=== PATIENT | male | born 1960 | race Caucasian/White ===

== ENCOUNTER 2022-07-12 03:13 | Inpatient (IN) | payer MEDICARE, OTHER ==
[~2022-07-12] VITALS: Ht 170.2 cm; Wt 67.5 kg
[~2022-07-12 03:13] MED LIST: ATOR10TA69 PO; INSLAN SQ; LEVO175T9 PO; LISI5TAB21 PO
[2022-07-12 03:42] LABS: BASOPHILS % (AUTO) 1.2 % (0.0-2.0); EOSINOPHILS % (AUTO) 2.1 % (1.0-6.0); LYMPHOCYTES # (AUTO) 1.6 K/uL (1.0-4.8); LYMPHOCYTES % (AUTO) 25.3 % (22.0-44.0); MEAN CORPUSCULAR HEMOGLOBIN 29.6 pg (26.0-34.0); MEAN CORPUSCULAR HGB CONC 33.3 G/dL (31.0-37.0); MEAN CORPUSCULAR VOLUME 89 fL (80-100); MONOCYTES # (AUTO) 0.5 K/uL (0.1-1.0); MONOCYTES % (AUTO) 7.6 % (2.0-9.0); NEUTROPHILS # (AUTO) 4.1 K/uL (1.8-7.7); NEUTROPHILS % (AUTO) 63.8 % (40.0-70.0); PLATELET COUNT (AUTO) 339 K/uL (150-450); RED BLOOD CELL COUNT(AUTO) 4.06 MIL/uL (4.50-5.90); RED CELL DISTRIBUTION WIDTH 14.1 % (11.5-14.5)
[2022-07-12 03:54] LABS: ANION GAP 10 mmol/L (8-16); CARBON DIOXIDE 26 mmol/L (22-29); CHLORIDE 102 mmol/L (98-107); CREATININE 0.86 mg/dL (0.60-1.30); GLOMERULAR FILTR. RATE CALC > 60 mL/min (>60); GLUCOSE,RANDOM 127 mg/dL (70-110); POTASSIUM 3.4 mmol/L (3.5-5.1); SODIUM SERUM 138 mmol/L (136-145); UREA NITROGEN, BLOOD 17 mg/dL (7-18)
[2022-07-12 03:58] LABS: ALANINE AMINOTRANSFERASE 20 U/L (12-78); ALBUMIN 3.6 g/dL (3.4-5.0); ALKALINE PHOSPHATASE 55 U/L (46-116); ASPARTATE AMINOTRANSFERASE 15 U/L (15-37); BILIRUBIN,TOTAL 0.2 mg/dL (0.1-1.0); CREATINE KINASE, TOTAL ONLY 68 U/L (39-308); TOTAL PROTEIN, SERUM 6.7 g/dL (6.4-8.2)
[2022-07-12 04:13] LABS: B-TYPE NATRIURETIC PEPTIDE 60 pg/mL (0-100)
[2022-07-12] MEDS ORDERED: DEXTROSE 50%-WATER 25 GM/50 ML SYRINGE IVP ONE (04:15)
[2022-07-12 04:26] LABS: GLUCOSE,POINT OF CARE 57 MG/DL (70-110)
[2022-07-12 04:45] LABS: PHOSPHORUS 4.5 mg/dL (2.5-4.9)
[2022-07-12 05:01] LABS: GLUCOSE,POINT OF CARE 136 MG/DL (70-110)
[2022-07-12] MEDS ORDERED: ACETAMINOPHEN 325 MG TABLET PO PRN (05:15)
[2022-07-12] MEDS ORDERED: ONDANSETRON HCL 4 MG/2 ML VIAL IVP PRN (05:15)
[2022-07-12] MEDS ORDERED: 0.9% SODIUM CHLORIDE 10 ML SYRINGE IVP PRN (05:15)
[2022-07-12] MEDS ORDERED: DEXTROSE 5%-LACTATED RINGERS 1,000 ML IV SCH (05:45)
[2022-07-12 05:46] LABS: GLUCOSE,POINT OF CARE 96 MG/DL (70-110)
[2022-07-12] MEDS: LEVOTHYROXINE SODIUM 150 MCG TABLET PO SCH (06:15)
[2022-07-12] MEDS: LEVOTHYROXINE SODIUM 25 MCG TABLET PO SCH (06:15)
[2022-07-12 06:22] LABS: GLUCOSE,POINT OF CARE 90 MG/DL (70-110)
[2022-07-12 06:28] LABS: COVID AG,FIA SOURCE NASAL SWAB
[2022-07-12] MEDS ORDERED: MISC MED-CONVERTED FROM AMBULATORY (Levothyroxine Sodium 175 MCG) PO SCH (06:30)
[2022-07-12 06:45] LABS: APPEARANCE,URINE CLEAR (CLEAR); BILIRUBIN,URINE NEGATIVE (NEGATIVE); GLUCOSE, URINE (UA) 300-500 mg/dL (NEGATIVE); KETONES,URINE NEGATIVE (NEGATIVE); LEUKOCYTE ESTERASE ,URINE SMALL (NEGATIVE); NITRATE,URINE NEGATIVE (NEGATIVE); OCCULT BLOOD,URINE NEGATIVE (NEGATIVE); PROTEIN,URINE NEGATIVE (NEGATIVE); SPECIFIC GRAVITIY, URINE 1.006 (1.003-1.030); UROBILINOGEN,URINE <=1.0 mg/dL (<=1.0)
[2022-07-12 07:01] LABS: BACTERIA,URINE Rare /HPF (None Seen); RBC,URINE None Seen /HPF (0-2); WBC,URINE 0-2 /HPF (0-5)
[2022-07-12 10:01] VITALS: BP 141/76
[2022-07-12] MEDS: ATORVASTATIN CALCIUM 10 MG TABLET PO SCH (11:00)
[2022-07-12] MEDS: LISINOPRIL 5 MG TABLET PO SCH (11:00)
[2022-07-12] MEDS ORDERED: DEXTROSE 50%-WATER 25 GM/50 ML SYRINGE IVP PRN (12:00)
[2022-07-12 12:11] LABS: GLUCOMETER DEV NAME(LOC) 5S.1B; GLUCOSE,POINT OF CARE 94 MG/DL (70-110)
[2022-07-12 12:16] VITALS: BP 126/75
[2022-07-12 15:27] VITALS: BP 109/59
[2022-07-12 20:24] VITALS: BP 108/63
[2022-07-12 20:46] LABS: GLUCOMETER DEV NAME(LOC) 5N.1C; GLUCOSE,POINT OF CARE 177 MG/DL (70-110)
[2022-07-12 20:47] LABS: GLUCOMETER DEV NAME(LOC) 5N.1C; GLUCOSE,POINT OF CARE 223 MG/DL (70-110)
[2022-07-13 00:45] VITALS: BP 100/67
[2022-07-13 04:54] VITALS: BP 95/53
[2022-07-13] MEDS: LEVOTHYROXINE SODIUM 25 MCG TABLET PO SCH (06:40)
[2022-07-13] MEDS: LEVOTHYROXINE SODIUM 150 MCG TABLET PO SCH (06:40)
[2022-07-13 06:51] LABS: GLUCOMETER DEV NAME(LOC) 5N.1C; GLUCOSE,POINT OF CARE 216 MG/DL (70-110)
[2022-07-13 07:27] LABS: BASOPHILS % (AUTO) 1.5 % (0.0-2.0); EOSINOPHILS % (AUTO) 2.2 % (1.0-6.0); HEMATOCRIT 39.8 % (41-53); HEMOGLOBIN 13.4 g/dL (13.5-17.5); LYMPHOCYTES # (AUTO) 1.7 K/uL (1.0-4.8); LYMPHOCYTES % (AUTO) 36.3 % (22.0-44.0); MEAN CORPUSCULAR HGB CONC 33.6 G/dL (31.0-37.0); MEAN CORPUSCULAR VOLUME 90 fL (80-100); MONOCYTES # (AUTO) 0.3 K/uL (0.1-1.0); MONOCYTES % (AUTO) 7.3 % (2.0-9.0); NEUTROPHILS # (AUTO) 2.5 K/uL (1.8-7.7); NEUTROPHILS % (AUTO) 52.7 % (40.0-70.0); PLATELET COUNT (AUTO) 295 K/uL (150-450); RED BLOOD CELL COUNT(AUTO) 4.44 MIL/uL (4.50-5.90); RED CELL DISTRIBUTION WIDTH 14.8 % (11.5-14.5)
[2022-07-13 07:33] VITALS: BP 107/63
[2022-07-13 07:49] LABS: ALANINE AMINOTRANSFERASE 18 U/L (12-78); ALBUMIN 3.2 g/dL (3.4-5.0); ALKALINE PHOSPHATASE 51 U/L (46-116); ANION GAP 6 mmol/L (8-16); ASPARTATE AMINOTRANSFERASE 17 U/L (15-37); BILIRUBIN,TOTAL 0.3 mg/dL (0.1-1.0); CALCIUM, TOTAL 8.7 mg/dL (8.8-10.5); CARBON DIOXIDE 31 mmol/L (22-29); CHLORIDE 104 mmol/L (98-107); CREATININE 0.78 mg/dL (0.60-1.30); GLOMERULAR FILTR. RATE CALC > 60 mL/min (>60); GLUCOSE,RANDOM 151 mg/dL (70-110); POTASSIUM 3.7 mmol/L (3.5-5.1); SODIUM SERUM 141 mmol/L (136-145); TOTAL PROTEIN, SERUM 6.2 g/dL (6.4-8.2); UREA NITROGEN, BLOOD 20 mg/dL (7-18)
[2022-07-13] MEDS: LISINOPRIL 5 MG TABLET PO SCH (09:32)
[2022-07-13] MEDS: ATORVASTATIN CALCIUM 10 MG TABLET PO SCH (09:32)
[2022-07-13 12:01] VITALS: BP 105/61
[2022-07-13 13:46] LABS: GLUCOMETER DEV NAME(LOC) 5N.1C; GLUCOSE,POINT OF CARE 247 MG/DL (70-110)
[2022-07-13 15:39] VITALS: BP 115/69
[2022-07-13 20:18] VITALS: BP 100/59
[2022-07-13] MEDS ORDERED: INSULIN LISPRO 100 UNITS/ML SQ ONE (21:00)
[2022-07-13] MEDS ORDERED: INSULIN LISPRO 100 UNITS/ML SQ PRN (21:00)
[2022-07-13 22:01] LABS: GLUCOMETER DEV NAME(LOC) 5N.1C; GLUCOSE,POINT OF CARE 389 MG/DL (70-110)
[2022-07-13 22:01] LABS: GLUCOMETER DEV NAME(LOC) 5N.1C; GLUCOSE,POINT OF CARE 586 MG/DL (70-110)
[2022-07-13 22:01] LABS: GLUCOMETER DEV NAME(LOC) 5N.1C; GLUCOSE,POINT OF CARE 542 MG/DL (70-110)
[2022-07-14 00:52] VITALS: BP 98/58
[2022-07-14 05:00] LABS: GLUCOMETER DEV NAME(LOC) 5N.1C; GLUCOSE,POINT OF CARE 242 MG/DL (70-110)
[2022-07-14] MEDS: LEVOTHYROXINE SODIUM 25 MCG TABLET PO SCH (05:31)
[2022-07-14] MEDS: LEVOTHYROXINE SODIUM 150 MCG TABLET PO SCH (05:31)
[2022-07-14 06:14] VITALS: BP 101/55
[2022-07-14 07:21] VITALS: BP 114/61
[2022-07-14] MEDS: ATORVASTATIN CALCIUM 10 MG TABLET PO SCH (08:12)
[2022-07-14] MEDS: LISINOPRIL 5 MG TABLET PO SCH (08:12)
[2022-07-14] MEDS ORDERED: INSLAN SQ ×2 (08:19→11:15)
[2022-07-14] MEDS ORDERED: INSULIN GLARGINE,HUM.REC.ANLOG 100 UNITS/ML SQ ONE (09:00)
[2022-07-14 09:06] LABS: GLUCOMETER DEV NAME(LOC) 5N.1C; GLUCOSE,POINT OF CARE 263 MG/DL (70-110)
[2022-07-14 11:00] VITALS: BP 106/58
[2022-07-14] MEDS ORDERED: INSULIN LISPRO 100 UNITS/ML SQ ONE ×2 (11:30→13:30)
[2022-07-14 12:51] LABS: GLUCOMETER DEV NAME(LOC) 5S.2C; GLUCOSE,POINT OF CARE 482 MG/DL (70-110)
[2022-07-14 18:21] LABS: GLUCOMETER DEV NAME(LOC) 5S.2C; GLUCOSE,POINT OF CARE 375 MG/DL (70-110)
== END 2022-07-14 14:15 | disposition home or self-care (01) | DRG 637 ==
LOC: EMS 03:14 → 5S 05:56
PROVIDERS: ADMIT Internal Medicine; ATTEND Internal Medicine
DX: E11.649 Type 2 diabetes mellitus with hypoglycemia without coma (principal); G93.41 Metabolic encephalopathy; E03.9 Hypothyroidism, unspecified; E78.5 Hyperlipidemia, unspecified; Z20.822 Contact with and (suspected) exposure to COVID-19; I10 Essential (primary) hypertension; Z79.4 Long term (current) use of insulin; Z79.899 Other long term (current) drug therapy
CPT/HCPCS: 70450; 71045; 72125; 80053; 81001; 82550; 82948; 82962; 83036; 83735; 83880; 84100; 84484; 85025; 93005; 99291; J1815; 36415-L1; 36415-TC

== ENCOUNTER 2022-07-17 02:06 | Emergency (ER) | payer MEDICARE, OTHER ==
[~2022-07-17] VITALS: Ht 175.3 cm; Wt 72.7 kg
[2022-07-17] MEDS ORDERED: DEXTROSE 50%-WATER 25 GM/50 ML SYRINGE IVP ONE (02:30)
[2022-07-17 02:49] LABS: BASOPHILS % (AUTO) 0.9 % (0.0-2.0); EOSINOPHILS % (AUTO) 2.1 % (1.0-6.0); HEMATOCRIT 36.7 % (41-53); LYMPHOCYTES # (AUTO) 1.7 K/uL (1.0-4.8); LYMPHOCYTES % (AUTO) 24.6 % (22.0-44.0); MEAN CORPUSCULAR HEMOGLOBIN 29.4 pg (26.0-34.0); MEAN CORPUSCULAR HGB CONC 32.8 G/dL (31.0-37.0); MEAN CORPUSCULAR VOLUME 90 fL (80-100); MONOCYTES # (AUTO) 0.5 K/uL (0.1-1.0); MONOCYTES % (AUTO) 7.5 % (2.0-9.0); NEUTROPHILS # (AUTO) 4.6 K/uL (1.8-7.7); NEUTROPHILS % (AUTO) 64.9 % (40.0-70.0); PLATELET COUNT (AUTO) 270 K/uL (150-450); RED BLOOD CELL COUNT(AUTO) 4.08 MIL/uL (4.50-5.90); RED CELL DISTRIBUTION WIDTH 14.3 % (11.5-14.5)
[2022-07-17 03:01] LABS: ANION GAP 8 mmol/L (8-16); CALCIUM, TOTAL 9.1 mg/dL (8.8-10.5); CARBON DIOXIDE 32 mmol/L (22-29); CHLORIDE 101 mmol/L (98-107); CREATININE 1.01 mg/dL (0.60-1.30); GLOMERULAR FILTR. RATE CALC > 60 mL/min (>60); GLUCOSE,RANDOM 201 mg/dL (70-110); POTASSIUM 3.7 mmol/L (3.5-5.1); SODIUM SERUM 141 mmol/L (136-145); UREA NITROGEN, BLOOD 22 mg/dL (7-18)
[2022-07-17 03:14] LABS: B-TYPE NATRIURETIC PEPTIDE 35 pg/mL (0-100)
[2022-07-17 03:26] LABS: ALANINE AMINOTRANSFERASE 28 U/L (12-78); ALKALINE PHOSPHATASE 65 U/L (46-116); ASPARTATE AMINOTRANSFERASE 21 U/L (15-37); BILIRUBIN,TOTAL 0.2 mg/dL (0.1-1.0); CREATINE KINASE, TOTAL ONLY 82 U/L (39-308); TOTAL PROTEIN, SERUM 7.1 g/dL (6.4-8.2)
[2022-07-17 05:21] LABS: GLUCOSE,POINT OF CARE 267 MG/DL (70-110)
[2022-07-17 06:39] VITALS: BP 122/75
== END 2022-07-17 06:40 | disposition left against medical advice (07) ==
LOC: EMS 02:07
DX: E11.649 Type 2 diabetes mellitus with hypoglycemia without coma (principal); I48.91 Unspecified atrial fibrillation; M19.90 Unspecified osteoarthritis, unspecified site; E78.00 Pure hypercholesterolemia, unspecified; I10 Essential (primary) hypertension; E03.9 Hypothyroidism, unspecified; Z89.9 Acquired absence of limb, unspecified; Z79.4 Long term (current) use of insulin; Z98.890 Other specified postprocedural states
CPT/HCPCS: 80053; 82550; 82962; 83880; 84484; 85025; 93005; 96374; 99284

== ENCOUNTER 2022-07-21 18:14 | Emergency (ER) | payer MEDICARE, OTHER ==
[~2022-07-21] VITALS: Ht 177.8 cm; Wt 72.7 kg
[2022-07-21 20:35] VITALS: BP 115/71
[2022-07-21] MEDS ORDERED: HYDROCODONE/ACETAMINOPHEN 5-325 MG TABLET PO ONE (20:45)
[2022-07-21] MEDS ORDERED: KETOROLAC TROMETHAMINE 60 MG/2 ML VIAL IM ONE (20:45)
[2022-07-21 21:11] LABS: GLUCOSE,POINT OF CARE 175 MG/DL (70-110)
[2022-07-21] MEDS ORDERED: HYDR-4723 PO (21:40)
[2022-07-21] MEDS ORDERED: IBUP-1554 PO (21:40)
== END 2022-07-21 22:43 | disposition still patient (30) ==
LOC: EMS 18:14
DX: S46.911A Strain of unspecified muscle, fascia and tendon at shoulder and upper arm level, right arm, initial encounter (principal); E11.9 Type 2 diabetes mellitus without complications; I48.91 Unspecified atrial fibrillation; M19.90 Unspecified osteoarthritis, unspecified site; E78.00 Pure hypercholesterolemia, unspecified; I10 Essential (primary) hypertension; E03.9 Hypothyroidism, unspecified; Z98.890 Other specified postprocedural states; W19.XXXA Unspecified fall, initial encounter; Y93.89 Activity, other specified; Y92.89 Other specified places as the place of occurrence of the external cause; Y99.8 Other external cause status
CPT/HCPCS: 99283; 29105; 82962; 73030; 96372; J1885; 29240

== ENCOUNTER 2022-08-02 08:02 | Emergency (ER) | payer MEDICARE, OTHER ==
[~2022-08-02] VITALS: Ht 167.6 cm; Wt 75.0 kg
[~2022-08-02 08:02] MED LIST changes: +HYDR-4723 PO; +IBUP-1554 PO
[2022-08-02] MEDS ORDERED: DEXTROSE 50%-WATER 25 GM/50 ML SYRINGE IVP ONE ×2 (08:14→08:15)
[2022-08-02] MEDS ORDERED: INSU100V52 SQ (08:26)
[2022-08-02 09:05] LABS: BASOPHILS % (AUTO) 0.9 % (0.0-2.0); EOSINOPHILS % (AUTO) 1.1 % (1.0-6.0); HEMATOCRIT 39.8 % (41-53); HEMOGLOBIN 13.3 g/dL (13.5-17.5); MEAN CORPUSCULAR HEMOGLOBIN 29.6 pg (26.0-34.0); MEAN CORPUSCULAR HGB CONC 33.4 G/dL (31.0-37.0); MEAN CORPUSCULAR VOLUME 89 fL (80-100); MONOCYTES # (AUTO) 0.6 K/uL (0.1-1.0); MONOCYTES % (AUTO) 4.3 % (2.0-9.0); NEUTROPHILS # (AUTO) 11.9 K/uL (1.8-7.7); PLATELET COUNT (AUTO) 336 K/uL (150-450); RED BLOOD CELL COUNT(AUTO) 4.48 MIL/uL (4.50-5.90); RED CELL DISTRIBUTION WIDTH 14.2 % (11.5-14.5)
[2022-08-02 09:07] LABS: NEUTROPHILS % (AUTO) 86.7 % (40.0-70.0)
[2022-08-02 09:17] LABS: ANION GAP 7 mmol/L (8-16); CALCIUM, TOTAL 9.1 mg/dL (8.8-10.5); CARBON DIOXIDE 30 mmol/L (22-29); CHLORIDE 100 mmol/L (98-107); CREATININE 1.02 mg/dL (0.60-1.30); GLOMERULAR FILTR. RATE CALC > 60 mL/min (>60); GLUCOSE,RANDOM 238 mg/dL (70-110); SODIUM SERUM 137 mmol/L (136-145); UREA NITROGEN, BLOOD 17 mg/dL (7-18)
[2022-08-02 09:23] LABS: ALANINE AMINOTRANSFERASE 19 U/L (12-78); ALKALINE PHOSPHATASE 72 U/L (46-116); ASPARTATE AMINOTRANSFERASE 22 U/L (15-37); BILIRUBIN,TOTAL 0.3 mg/dL (0.1-1.0); TOTAL PROTEIN, SERUM 7.6 g/dL (6.4-8.2)
[2022-08-02 09:24] VITALS: BP 130/67
[2022-08-02 10:36] LABS: GLUCOSE,POINT OF CARE 213 MG/DL (70-110)
== END 2022-08-02 10:32 | disposition home or self-care (01) ==
LOC: EMS 08:07
DX: E11.649 Type 2 diabetes mellitus with hypoglycemia without coma (principal); I48.91 Unspecified atrial fibrillation; M19.90 Unspecified osteoarthritis, unspecified site; E78.00 Pure hypercholesterolemia, unspecified; I10 Essential (primary) hypertension; E03.9 Hypothyroidism, unspecified; Z89.122 Acquired absence of left wrist
CPT/HCPCS: 80053; 82962; 85025; 96374; 99283

== ENCOUNTER 2022-08-17 05:06 | Emergency (ER) | payer MEDICARE, OTHER ==
[~2022-08-17] VITALS: Ht 180.3 cm; Wt 72.0 kg
[~2022-08-17 05:06] MED LIST changes: -INSLAN SQ; +INSU100V52 SQ
[2022-08-17 06:39] LABS: BASOPHILS % (AUTO) 0.6 % (0.0-2.0); EOSINOPHILS % (AUTO) 0.7 % (1.0-6.0); HEMOGLOBIN 13.4 g/dL (13.5-17.5); LYMPHOCYTES # (AUTO) 1.1 K/uL (1.0-4.8); LYMPHOCYTES % (AUTO) 8.8 % (22.0-44.0); MEAN CORPUSCULAR HEMOGLOBIN 29.7 pg (26.0-34.0); MEAN CORPUSCULAR HGB CONC 33.5 G/dL (31.0-37.0); MEAN CORPUSCULAR VOLUME 89 fL (80-100); MONOCYTES # (AUTO) 0.6 K/uL (0.1-1.0); MONOCYTES % (AUTO) 4.7 % (2.0-9.0); NEUTROPHILS # (AUTO) 10.7 K/uL (1.8-7.7); PLATELET COUNT (AUTO) 251 K/uL (150-450); RED BLOOD CELL COUNT(AUTO) 4.51 MIL/uL (4.50-5.90); RED CELL DISTRIBUTION WIDTH 13.6 % (11.5-14.5)
[2022-08-17 06:41] LABS: GLUCOMETER DEV NAME(LOC) ERT.5; GLUCOSE,POINT OF CARE 257 MG/DL (70-110)
[2022-08-17 06:51] LABS: NEUTROPHILS % (AUTO) 85.2 % (40.0-70.0)
[2022-08-17 06:52] LABS: ANION GAP 9 mmol/L (8-16); CALCIUM, TOTAL 9.4 mg/dL (8.8-10.5); CARBON DIOXIDE 28 mmol/L (22-29); CHLORIDE 101 mmol/L (98-107); CREATININE 0.93 mg/dL (0.60-1.30); GLOMERULAR FILTR. RATE CALC > 60 mL/min (>60); GLUCOSE,RANDOM 324 mg/dL (70-110); SODIUM SERUM 138 mmol/L (136-145); UREA NITROGEN, BLOOD 22 mg/dL (7-18)
[2022-08-17 06:58] LABS: ALANINE AMINOTRANSFERASE 25 U/L (12-78); ALBUMIN 4.2 g/dL (3.4-5.0); ALKALINE PHOSPHATASE 85 U/L (46-116); ASPARTATE AMINOTRANSFERASE 23 U/L (15-37); BILIRUBIN,TOTAL 0.5 mg/dL (0.1-1.0); TOTAL PROTEIN, SERUM 7.7 g/dL (6.4-8.2)
[2022-08-17 08:00] VITALS: BP 143/84
== END 2022-08-17 08:19 | disposition home or self-care (01) ==
LOC: EMS 05:07
DX: E11.649 Type 2 diabetes mellitus with hypoglycemia without coma (principal); I48.91 Unspecified atrial fibrillation; M19.90 Unspecified osteoarthritis, unspecified site; E78.00 Pure hypercholesterolemia, unspecified; I10 Essential (primary) hypertension; E03.9 Hypothyroidism, unspecified; Z91.040 Latex allergy status; Z89.432 Acquired absence of left foot
CPT/HCPCS: 99283; 80053; 82962; 84484; 85025; 36415; 93005; G0480

== ENCOUNTER 2022-08-26 07:37 | Emergency (ER) | payer MEDICARE, OTHER ==
[~2022-08-26] VITALS: Ht 175.3 cm; Wt 75.7 kg
[2022-08-26 08:08] LABS: BASOPHILS % (AUTO) 0.9 % (0.0-2.0); EOSINOPHILS % (AUTO) 1.3 % (1.0-6.0); HEMATOCRIT 41.2 % (41-53); HEMOGLOBIN 13.7 g/dL (13.5-17.5); LYMPHOCYTES % (AUTO) 14.2 % (22.0-44.0); MEAN CORPUSCULAR HEMOGLOBIN 29.6 pg (26.0-34.0); MEAN CORPUSCULAR HGB CONC 33.3 G/dL (31.0-37.0); MEAN CORPUSCULAR VOLUME 89 fL (80-100); MONOCYTES # (AUTO) 0.3 K/uL (0.1-1.0); MONOCYTES % (AUTO) 4.7 % (2.0-9.0); NEUTROPHILS # (AUTO) 5.7 K/uL (1.8-7.7); NEUTROPHILS % (AUTO) 78.9 % (40.0-70.0); PLATELET COUNT (AUTO) 232 K/uL (150-450); RED BLOOD CELL COUNT(AUTO) 4.63 MIL/uL (4.50-5.90); RED CELL DISTRIBUTION WIDTH 13.6 % (11.5-14.5)
[2022-08-26 08:17] LABS: ANION GAP 12 mmol/L (8-16); CARBON DIOXIDE 25 mmol/L (22-29); CHLORIDE 102 mmol/L (98-107); CREATININE 1.05 mg/dL (0.60-1.30); GLUCOSE,RANDOM 187 mg/dL (70-110); POTASSIUM 4.1 mmol/L (3.5-5.1); SODIUM SERUM 139 mmol/L (136-145); UREA NITROGEN, BLOOD 21 mg/dL (7-18)
[2022-08-26 08:18] LABS: CALCIUM, TOTAL 9.3 mg/dL (8.8-10.5); GLOMERULAR FILTR. RATE CALC > 60 mL/min (>60)
[2022-08-26 08:31] LABS: ALANINE AMINOTRANSFERASE 23 U/L (12-78); ALBUMIN 4.1 g/dL (3.4-5.0); ALKALINE PHOSPHATASE 76 U/L (46-116); ASPARTATE AMINOTRANSFERASE 20 U/L (15-37); BILIRUBIN,TOTAL 0.2 mg/dL (0.1-1.0); THYROID STIMULATING HORMONE 4.53 uIU/mL (0.36-3.74); TOTAL PROTEIN, SERUM 7.7 g/dL (6.4-8.2)
[2022-08-26 08:41] LABS: GLUCOMETER DEV NAME(LOC) ERT.5; GLUCOSE,POINT OF CARE 182 MG/DL (70-110)
[2022-08-26 09:04] LABS: APPEARANCE,URINE CLEAR (CLEAR); BILIRUBIN,URINE NEGATIVE (NEGATIVE); GLUCOSE, URINE (UA) 300-500 mg/dL (NEGATIVE); KETONES,URINE NEGATIVE (NEGATIVE); LEUKOCYTE ESTERASE ,URINE NEGATIVE (NEGATIVE); NITRATE,URINE NEGATIVE (NEGATIVE); OCCULT BLOOD,URINE NEGATIVE (NEGATIVE); PH,URINE 5.5 (5.0-8.0); PROTEIN,URINE TRACE mg/dL (NEGATIVE); SPECIFIC GRAVITIY, URINE 1.012 (1.003-1.030); UROBILINOGEN,URINE <=1.0 mg/dL (<=1.0)
[2022-08-26 09:11] LABS: AMPHET/METH SCREEN,URINE NEGATIVE (NEGATIVE); BARBITURATE SCREEN, URINE NEGATIVE (NEGATIVE); BENZODIAZEPINES SCREEN,URINE NEGATIVE (NEGATIVE); CANNABINOID SCREEN,URINE NEGATIVE (NEGATIVE); COCAINE SCREEN,URINE NEGATIVE (NEGATIVE); METHADONE SCREEN, URINE NEGATIVE (NEGATIVE); OPIATE SCREEN,URINE NEGATIVE (NEGATIVE); PHENCYCLIDINE SCREEN,URINE NEGATIVE (NEGATIVE)
[2022-08-26 09:16] LABS: GLUCOMETER DEV NAME(LOC) ERT.5; GLUCOSE,POINT OF CARE 200 MG/DL (70-110)
[2022-08-26 09:20] LABS: BACTERIA,URINE None Seen /HPF (None Seen); RBC,URINE None Seen /HPF (0-2); SQUAMOUS EPITHELIAL CELL,UR Rare /LPF (None Seen); WBC,URINE None Seen /HPF (0-5)
[2022-08-26 10:02] VITALS: BP 145/78
[2022-08-26 11:06] LABS: GLUCOMETER DEV NAME(LOC) ERT.5; GLUCOSE,POINT OF CARE 226 MG/DL (70-110)
== END 2022-08-26 10:03 | disposition home or self-care (01) ==
LOC: EMS 07:37
DX: E11.649 Type 2 diabetes mellitus with hypoglycemia without coma (principal); I48.91 Unspecified atrial fibrillation; M19.90 Unspecified osteoarthritis, unspecified site; E78.00 Pure hypercholesterolemia, unspecified; I10 Essential (primary) hypertension; E03.9 Hypothyroidism, unspecified; Z98.890 Other specified postprocedural states; Z91.040 Latex allergy status
CPT/HCPCS: 99284; 80053; 84443; 85025; 36415; 82948; 93005; 81001; 82962; 80307 ×2; G0480

== ENCOUNTER 2023-02-13 06:40 | Emergency (ER) | payer OTHER ==
[~2023-02-13] VITALS: Ht 180.3 cm; Wt 78.2 kg
[2023-02-13 06:47] VITALS: TEMP 98.6
[2023-02-13 07:37] VITALS: BP 132/77; PULSE 72; RESP 17
== END 2023-02-13 08:19 | disposition left against medical advice (07) ==
LOC: EMS 06:41
DX: E11.65 Type 2 diabetes mellitus with hyperglycemia (principal); R41.82 Altered mental status, unspecified; Z89.422 Acquired absence of other left toe(s); Z91.040 Latex allergy status
CPT/HCPCS: 82962; 99283

== ENCOUNTER 2023-03-31 06:54 | Emergency (ER) | payer OTHER ==
[~2023-03-31] VITALS: Ht 177.8 cm; Wt 77.3 kg
[2023-03-31 07:15] VITALS: TEMP 97.6
[2023-03-31 08:06] VITALS: BP 142/92; PULSE 76; RESP 16
== END 2023-03-31 11:01 | disposition left against medical advice (07) ==
LOC: EMS 06:54
DX: E11.649 Type 2 diabetes mellitus with hypoglycemia without coma (principal); Z89.022 Acquired absence of left finger(s); Z91.040 Latex allergy status
CPT/HCPCS: 93005; 99283

== ENCOUNTER 2023-04-02 02:33 | Emergency (ER) | payer OTHER ==
[~2023-04-02] VITALS: Ht 177.8 cm; Wt 77.3 kg
[2023-04-02 03:04] VITALS: TEMP 98.8
[2023-04-02] MEDS ORDERED: DEXTROSE 50%-WATER 25 GM/50 ML SYRINGE IVP ONE (03:15)
[2023-04-02 03:41] LABS: GLUCOMETER DEV NAME(LOC) ER.6; GLUCOSE,POINT OF CARE 239 MG/DL (70-110)
[2023-04-02 06:01] VITALS: BP 140/74; PULSE 77; RESP 16
== END 2023-04-02 06:05 | disposition home or self-care (01) ==
LOC: EMS 02:34
DX: E11.649 Type 2 diabetes mellitus with hypoglycemia without coma (principal); Z91.040 Latex allergy status; Z89.422 Acquired absence of other left toe(s)
CPT/HCPCS: 82962; 93005; 99284

== ENCOUNTER 2023-05-07 07:04 | Emergency (ER) | payer OTHER ==
[~2023-05-07] VITALS: Ht 180.3 cm; Wt 78.2 kg
[2023-05-07 07:36] VITALS: TEMP 98.1
[2023-05-07 08:19] LABS: BASOPHILS % (AUTO) 0.7 % (0.0-2.0); EOSINOPHILS % (AUTO) 0.9 % (1.0-6.0); HEMATOCRIT 42.5 % (41-53); HEMOGLOBIN 14.7 g/dL (13.5-17.5); LYMPHOCYTES # (AUTO) 0.9 K/uL (1.0-4.8); LYMPHOCYTES % (AUTO) 10.2 % (22.0-44.0); MEAN CORPUSCULAR HEMOGLOBIN 29.6 pg (26.0-34.0); MEAN CORPUSCULAR HGB CONC 34.5 G/dL (31.0-37.0); MEAN CORPUSCULAR VOLUME 86 fL (80-100); MONOCYTES # (AUTO) 0.4 K/uL (0.1-1.0); NEUTROPHILS # (AUTO) 7.2 K/uL (1.8-7.7); NEUTROPHILS % (AUTO) 83.2 % (40.0-70.0); PLATELET COUNT (AUTO) 266 K/uL (150-450); RED BLOOD CELL COUNT(AUTO) 4.95 MIL/uL (4.50-5.90); RED CELL DISTRIBUTION WIDTH 13.2 % (11.5-14.5); WHITE BLOOD COUNT (AUTO) 8.6 K/uL (4.5-11.0)
[2023-05-07 08:26] LABS: ANION GAP 10 mmol/L (8-16); CALCIUM, TOTAL 9.5 mg/dL (8.8-10.5); CARBON DIOXIDE 30 mmol/L (22-29); CHLORIDE 102 mmol/L (98-107); CREATININE 1.17 mg/dL (0.60-1.30); GLOMERULAR FILTR. RATE CALC > 60 mL/min (>60); GLUCOSE,RANDOM 139 mg/dL (70-110); SODIUM SERUM 142 mmol/L (136-145); UREA NITROGEN, BLOOD 23 mg/dL (7-18)
[2023-05-07 08:32] LABS: ACETONE,BLOOD NEGATIVE (NEGATIVE); ALANINE AMINOTRANSFERASE 20 U/L (12-78); ALBUMIN 4.1 g/dL (3.4-5.0); ALKALINE PHOSPHATASE 65 U/L (46-116); ASPARTATE AMINOTRANSFERASE 21 U/L (15-37); BILIRUBIN,TOTAL 0.3 mg/dL (0.1-1.0); TOTAL PROTEIN, SERUM 7.8 g/dL (6.4-8.2)
[2023-05-07 08:34] LABS: TROPONIN I-HIGH SENSITIVITY 11 ng/L (<76)
[2023-05-07 09:06] VITALS: BP 158/77; PULSE 89; RESP 18
== END 2023-05-07 09:51 | disposition home or self-care (01) ==
LOC: EMS 07:05
DX: R55 Syncope and collapse (principal); E11.649 Type 2 diabetes mellitus with hypoglycemia without coma; Z96.692 Finger-joint replacement of left hand; Z91.040 Latex allergy status
CPT/HCPCS: 80053; 82009; 82962; 84484; 85025; 99283

== ENCOUNTER 2023-05-28 01:44 | Emergency (ER) | payer OTHER ==
[~2023-05-28] VITALS: Ht 175.3 cm; Wt 77.3 kg
[2023-05-28 01:52] VITALS: TEMP 97.6
[2023-05-28 02:55] LABS: BASOPHILS % (AUTO) 0.3 % (0.0-2.0); EOSINOPHILS % (AUTO) 0.5 % (1.0-6.0); HEMATOCRIT 43.3 % (41-53); HEMOGLOBIN 14.4 g/dL (13.5-17.5); LYMPHOCYTES # (AUTO) 0.7 K/uL (1.0-4.8); LYMPHOCYTES % (AUTO) 4.6 % (22.0-44.0); MEAN CORPUSCULAR HEMOGLOBIN 28.5 pg (26.0-34.0); MEAN CORPUSCULAR HGB CONC 33.2 G/dL (31.0-37.0); MEAN CORPUSCULAR VOLUME 86 fL (80-100); MONOCYTES # (AUTO) 0.9 K/uL (0.1-1.0); MONOCYTES % (AUTO) 5.6 % (2.0-9.0); NEUTROPHILS # (AUTO) 14.3 K/uL (1.8-7.7); PLATELET COUNT (AUTO) 254 K/uL (150-450); RED BLOOD CELL COUNT(AUTO) 5.04 MIL/uL (4.50-5.90); RED CELL DISTRIBUTION WIDTH 13.5 % (11.5-14.5); WHITE BLOOD COUNT (AUTO) 16.1 K/uL (4.5-11.0)
[2023-05-28 03:04] LABS: ANION GAP 6 mmol/L (8-16); CALCIUM, TOTAL 9.5 mg/dL (8.8-10.5); CARBON DIOXIDE 31 mmol/L (22-29); CHLORIDE 101 mmol/L (98-107); CREATININE 1.06 mg/dL (0.60-1.30); GLOMERULAR FILTR. RATE CALC > 60 mL/min (>60); GLUCOSE,RANDOM 179 mg/dL (70-110); POTASSIUM 4.1 mmol/L (3.5-5.1); SODIUM SERUM 138 mmol/L (136-145); UREA NITROGEN, BLOOD 25 mg/dL (7-18)
[2023-05-28 03:10] LABS: ALANINE AMINOTRANSFERASE 22 U/L (12-78); ALBUMIN 4.1 g/dL (3.4-5.0); ALKALINE PHOSPHATASE 62 U/L (46-116); ASPARTATE AMINOTRANSFERASE 20 U/L (15-37); BILIRUBIN,TOTAL 0.2 mg/dL (0.1-1.0); TOTAL PROTEIN, SERUM 7.3 g/dL (6.4-8.2)
[2023-05-28 08:54] VITALS: BP 118/68; PULSE 77; RESP 18
[2023-05-28 09:36] LABS: GLUCOMETER DEV NAME(LOC) ERT.5; GLUCOSE,POINT OF CARE 80 MG/DL (70-110)
== END 2023-05-28 08:57 | disposition home or self-care (01) ==
LOC: EMS 01:45
DX: E11.65 Type 2 diabetes mellitus with hyperglycemia (principal)
CPT/HCPCS: 80053; 82962; 85025; 99283

== ENCOUNTER 2024-01-01 11:52 | Inpatient (IN) | payer MEDICARE, OTHER ==
[~2024-01-01] VITALS: Ht 180.3 cm; Wt 75.5 kg
[~2024-01-01 11:52] MED LIST changes: +ACET-2247 PO; -ATOR10TA69 PO; +DOCU-385 PO; +HEPA500018 SQ; +HYDR-4062 PO; -HYDR-4723 PO; -IBUP-1554 PO; +INSLAN SQ; +INSU100V SQ; -INSU100V52 SQ; -LISI5TAB21 PO; +PANT-31 PO
[2024-01-01 13:06] LABS: GLUCOMETER DEV NAME(LOC) ERT.5; GLUCOSE,POINT OF CARE 186 MG/DL (70-110)
[2024-01-01 13:40] LABS: HEMATOCRIT 42.7 % (41-53); HEMOGLOBIN 13.9 g/dL (13.5-17.5); MEAN CORPUSCULAR HEMOGLOBIN 28.8 pg (26.0-34.0); MEAN CORPUSCULAR HGB CONC 32.5 G/dL (31.0-37.0); MEAN CORPUSCULAR VOLUME 89 fL (80-100); PLATELET COUNT (AUTO) 306 K/uL (150-450); RED BLOOD CELL COUNT(AUTO) 4.83 MIL/uL (4.50-5.90); RED CELL DISTRIBUTION WIDTH 14.5 % (11.5-14.5); WHITE BLOOD COUNT (AUTO) 10.3 K/uL (4.5-11.0)
[2024-01-01 14:14] LABS: BAND NEUTROPHILS % (MANUAL) 2 % (0-5); LYMPHOCYTES % (MANUAL) 10 % (22-44); MONOCYTES % (MANUAL) 5 % (2-9); RBC MORPHOLOGY COMMENT NORMAL RBC MORPH; SEGMENTED NEUTROPHILS % 83 % (40-70); TOTAL CELLS COUNTED 100
[2024-01-01 14:50] LABS: GLUCOMETER DEV NAME(LOC) ERT.5; GLUCOSE,POINT OF CARE 126 MG/DL (70-110)
[2024-01-01 15:56] LABS: GLUCOMETER DEV NAME(LOC) ERT.5; GLUCOSE,POINT OF CARE 106 MG/DL (70-110)
[2024-01-01] MEDS: DEXTROSE 5%-WATER 250 ML IV ONE (17:20)
[2024-01-01] MEDS: DEXTROSE 50%-WATER 25 GM/50 ML SYRINGE IVP ONE (17:20)
[2024-01-01 18:11] LABS: GLUCOMETER DEV NAME(LOC) ERT.5; GLUCOSE,POINT OF CARE 59 MG/DL (70-110)
[2024-01-01 18:11] LABS: GLUCOMETER DEV NAME(LOC) ERT.5; GLUCOSE,POINT OF CARE 76 MG/DL (70-110)
[2024-01-01 18:11] LABS: GLUCOMETER DEV NAME(LOC) ER.7; GLUCOSE,POINT OF CARE 159 MG/DL (70-110)
[2024-01-01 18:14] LABS: ANION GAP 12 mmol/L (8-16); CARBON DIOXIDE 24 mmol/L (22-29); CHLORIDE 103 mmol/L (98-107); GLOMERULAR FILTR. RATE CALC > 60 mL/min (>60); GLUCOSE,RANDOM 118 mg/dL (70-110); POTASSIUM 3.8 mmol/L (3.5-5.1); SODIUM SERUM 139 mmol/L (136-145); UREA NITROGEN, BLOOD 18 mg/dL (7-18)
[2024-01-01 18:20] LABS: ALANINE AMINOTRANSFERASE 23 U/L (12-78); ALBUMIN 3.4 g/dL (3.4-5.0); ALKALINE PHOSPHATASE 90 U/L (46-116); ASPARTATE AMINOTRANSFERASE 26 U/L (15-37); BILIRUBIN,TOTAL 0.3 mg/dL (0.1-1.0); TOTAL PROTEIN, SERUM 7.3 g/dL (6.4-8.2)
[2024-01-01 18:29] LABS: ALCOHOL, BLOOD (SERUM) < 3 mg/dL (0-10)
[2024-01-01 18:35] LABS: GLUCOMETER DEV NAME(LOC) ER.7; GLUCOSE,POINT OF CARE 203 MG/DL (70-110)
[2024-01-01 18:51] LABS: APPEARANCE,URINE CLEAR (CLEAR); BILIRUBIN,URINE NEGATIVE (NEGATIVE); COLOR,URINE LIGHT YELLOW (YELLOW); GLUCOSE, URINE (UA) 300-500 mg/dL (NEGATIVE); KETONES,URINE NEGATIVE (NEGATIVE); LEUKOCYTE ESTERASE ,URINE NEGATIVE (NEGATIVE); NITRATE,URINE NEGATIVE (NEGATIVE); OCCULT BLOOD,URINE NEGATIVE (NEGATIVE); PH,URINE 5.5 (5.0-8.0); PH,URINE DRUG SCREEN 5.5 (5.0-8.0); PROTEIN,URINE TRACE mg/dL (NEGATIVE); SPECIFIC GRAVITIY, URINE 1.015 (1.003-1.030); UROBILINOGEN,URINE <=1.0 mg/dL (<=1.0)
[2024-01-01 18:54] LABS: BACTERIA,URINE None Seen /HPF (None Seen); RBC,URINE None Seen /HPF (0-2); SQUAMOUS EPITHELIAL CELL,UR None Seen /LPF (None Seen); WBC,URINE None Seen /HPF (0-5)
[2024-01-01 18:58] LABS: ALCOHOL, URINE DRUG SCREEN NEGATIVE (NEGATIVE); AMPHET/METH SCREEN,URINE NEGATIVE (NEGATIVE); BARBITURATE SCREEN, URINE NEGATIVE (NEGATIVE); BENZODIAZEPINES SCREEN,URINE NEGATIVE (NEGATIVE); CANNABINOID SCREEN,URINE NEGATIVE (NEGATIVE); COCAINE SCREEN,URINE NEGATIVE (NEGATIVE); METHADONE SCREEN, URINE NEGATIVE (NEGATIVE); OPIATE SCREEN,URINE NEGATIVE (NEGATIVE); PHENCYCLIDINE SCREEN,URINE NEGATIVE (NEGATIVE)
[2024-01-01 18:59] LABS: THYROID STIMULATING HORMONE 9.48 uIU/mL (0.36-3.74)
[2024-01-01 19:21] LABS: GLUCOMETER DEV NAME(LOC) ER.7; GLUCOSE,POINT OF CARE 185 MG/DL (70-110)
[2024-01-02] MEDS ORDERED: BISACODYL 10 MG RECTAL RECTAL SUPPOSITORY PR PRN (01:30)
[2024-01-02] MEDS ORDERED: ONDANSETRON HCL 4 MG/2 ML VIAL IVP PRN (01:30)
[2024-01-02] MEDS ORDERED: MAGNESIUM HYDROXIDE SUSPENSION 30 ML UDCUP PO PRN (01:30)
[2024-01-02] MEDS ORDERED: ZOLPIDEM TARTRATE 5 MG TABLET PO PRN (01:30)
[2024-01-02] MEDS ORDERED: OxyCODONE HCL/ACETAMINOPHEN 5-325 MG TABLET PO PRN (01:30)
[2024-01-02] MEDS ORDERED: MORPHINE SULFATE 2 MG/ML SYRINGE IVP PRN (01:30)
[2024-01-02] MEDS ORDERED: ALBUTEROL SULFATE 2.5 MG/0.5 ML NEB SOLUTION NEB PRN (01:30)
[2024-01-02] MEDS ORDERED: ACETAMINOPHEN 325 MG TABLET PO PRN (01:30)
[2024-01-02] MEDS ORDERED: IPRATROPIUM BROMIDE 0.5 MG/2.5 ML NEB SOLUTION NEB PRN (01:30)
[2024-01-02 03:49] VITALS: BP 123/80; PULSE 96; RESP 20; TEMP 98.8; O2SAT 94
[2024-01-02 08:27] VITALS: BP 123/60; PULSE 77; RESP 20; TEMP 98; O2SAT 98
[2024-01-02] MEDS: DOCUSATE SODIUM 100 MG CAPSULE PO SCH (08:51)
[2024-01-02] MEDS: HEPARIN SODIUM,PORCINE 5,000 UNITS/ML VIAL SQ SCH (08:51)
[2024-01-02] MEDS ORDERED: PANTOPRAZOLE SODIUM 40 MG DR TABLET PO SCH (09:00)
[2024-01-02] MEDS ORDERED: DOCUSATE SODIUM 100 MG CAPSULE PO SCH (09:00)
[2024-01-02] MEDS: DEXTROSE 5%-0.45% SODIUM CHL 1,000 ML IV SCH (10:46)
[2024-01-02] MEDS: PANTOPRAZOLE SODIUM 40 MG/VIAL IVP SCH (10:46)
[2024-01-02 11:51] LABS: GLUCOMETER DEV NAME(LOC) 6N.2B; GLUCOSE,POINT OF CARE 269 MG/DL (70-110)
[2024-01-02 15:42] VITALS: BP 115/64; PULSE 77; RESP 19; TEMP 98.1; O2SAT 96
[2024-01-02] MEDS: SODIUM CHLORIDE 0.9% 1,000 ML IV SCH (17:09)
[2024-01-02 17:37] LABS: GLUCOMETER DEV NAME(LOC) 4E.2; GLUCOSE,POINT OF CARE 95 MG/DL (70-110)
[2024-01-02 17:53] LABS: GLUCOMETER DEV NAME(LOC) 4E.2; GLUCOSE,POINT OF CARE 383 MG/DL (70-110)
[2024-01-02 19:42] VITALS: BP 127/69; PULSE 83; RESP 19; TEMP 98.2; O2SAT 97
[2024-01-02] MEDS: INSULIN LISPRO 100 UNITS/ML SQ ONE ×3 (21:23→23:14)
[2024-01-03 00:06] LABS: GLUCOMETER DEV NAME(LOC) 6N.2B; GLUCOSE,POINT OF CARE 530 MG/DL (70-110)
[2024-01-03 00:06] LABS: GLUCOMETER DEV NAME(LOC) 6N.2B; GLUCOSE,POINT OF CARE 549 MG/DL (70-110)
[2024-01-03] MEDS: INSULIN GLARGINE,HUM.REC.ANLOG 100 UNITS/ML SQ ONE (00:46)
[2024-01-03 00:50] LABS: GLUCOMETER DEV NAME(LOC) 6N.2B; GLUCOSE,POINT OF CARE 271 MG/DL (70-110)
[2024-01-03 05:15] VITALS: BP 112/63; PULSE 74; RESP 18; TEMP 97.8; O2SAT 96
[2024-01-03] MEDS: DEXTROSE 50%-WATER 25 GM/50 ML SYRINGE IVP PRN (06:38)
[2024-01-03 07:47] VITALS: BP 121/71; PULSE 77; RESP 18; TEMP 97.6; O2SAT 96
[2024-01-03 12:00] LABS: GLUCOMETER DEV NAME(LOC) 4E.2; GLUCOSE,POINT OF CARE 34 MG/DL (70-110)
[2024-01-03 12:00] LABS: GLUCOMETER DEV NAME(LOC) 4E.2; GLUCOSE,POINT OF CARE 194 MG/DL (70-110)
[2024-01-03] MEDS: INSULIN LISPRO 100 UNITS/ML SQ PRN (12:17)
[2024-01-03 12:51] LABS: GLUCOMETER DEV NAME(LOC) 6N.2B; GLUCOSE,POINT OF CARE 419 MG/DL (70-110)
[2024-01-03 15:42] VITALS: BP 109/62; PULSE 80; RESP 20; TEMP 98.1; O2SAT 97
[2024-01-03 18:10] LABS: GLUCOMETER DEV NAME(LOC) 6N.2B; GLUCOSE,POINT OF CARE 264 MG/DL (70-110)
[2024-01-03 20:45] VITALS: BP 124/68; PULSE 75; RESP 18; TEMP 97.9; O2SAT 95
[2024-01-03] MEDS: INSULIN GLARGINE,HUM.REC.ANLOG 100 UNITS/ML SQ SCH (21:07)
[2024-01-04 03:01] LABS: GLUCOMETER DEV NAME(LOC) 6N.2B; GLUCOSE,POINT OF CARE 250 MG/DL (70-110)
[2024-01-04 04:13] LABS: APPEARANCE,URINE CLEAR (CLEAR); BILIRUBIN,URINE NEGATIVE (NEGATIVE); COLOR,URINE COLORLESS (YELLOW); GLUCOSE, URINE (UA) 150-200 mg/dL (NEGATIVE); KETONES,URINE NEGATIVE (NEGATIVE); LEUKOCYTE ESTERASE ,URINE NEGATIVE (NEGATIVE); NITRATE,URINE NEGATIVE (NEGATIVE); OCCULT BLOOD,URINE NEGATIVE (NEGATIVE); PROTEIN,URINE NEGATIVE (NEGATIVE); SPECIFIC GRAVITIY, URINE 1.006 (1.003-1.030); UROBILINOGEN,URINE <=1.0 mg/dL (<=1.0)
[2024-01-04 04:24] VITALS: BP 125/71; PULSE 71; RESP 18; TEMP 97.7; O2SAT 96
[2024-01-04 04:27] LABS: BACTERIA,URINE None Seen /HPF (None Seen); RBC,URINE None Seen /HPF (0-2); SQUAMOUS EPITHELIAL CELL,UR Few /LPF (None Seen); WBC,URINE None Seen /HPF (0-5)
[2024-01-04 08:24] VITALS: BP 106/68; PULSE 75; RESP 19; TEMP 97.9; O2SAT 96
[2024-01-04] MEDS: INSULIN REGULAR, HUMAN 100 UNITS/ML SQ SCH (11:51)
[2024-01-04 16:00] VITALS: BP 128/72; PULSE 77; RESP 19; TEMP 97.9; O2SAT 97
[2024-01-04 17:35] LABS: GLUCOMETER DEV NAME(LOC) 6N.2B; GLUCOSE,POINT OF CARE 253 MG/DL (70-110)
[2024-01-04 17:35] LABS: GLUCOMETER DEV NAME(LOC) 6N.2B; GLUCOSE,POINT OF CARE 91 MG/DL (70-110)
[2024-01-04 20:21] VITALS: BP 129/67; PULSE 77; RESP 18; TEMP 98.1; O2SAT 98
[2024-01-04] MEDS: INSULIN GLARGINE,HUM.REC.ANLOG 100 UNITS/ML SQ SCH (21:00)
[2024-01-05 01:26] LABS: GLUCOMETER DEV NAME(LOC) 4E.2; GLUCOSE,POINT OF CARE 150 MG/DL (70-110)
[2024-01-05 01:26] LABS: GLUCOMETER DEV NAME(LOC) 4E.2; GLUCOSE,POINT OF CARE 133 MG/DL (70-110)
[2024-01-05 02:36] LABS: GLUCOMETER DEV NAME(LOC) 6N.2B; GLUCOSE,POINT OF CARE 115 MG/DL (70-110)
[2024-01-05 05:47] VITALS: BP 109/77; PULSE 78; RESP 18; TEMP 97.9; O2SAT 95
[2024-01-05 06:16] LABS: GLUCOMETER DEV NAME(LOC) 6N.2B; GLUCOSE,POINT OF CARE 204 MG/DL (70-110)
[2024-01-05] MEDS ORDERED: INSU100V SQ (10:01)
[2024-01-05] MEDS ORDERED: INSU100V37 SQ (10:01)
[2024-01-06 11:50] LABS: GLUCOMETER DEV NAME(LOC) 6N.2B; GLUCOSE,POINT OF CARE 163 MG/DL (70-110)
== END 2024-01-05 14:06 | disposition home health service (06) | DRG 637 ==
LOC: EMS 11:52 → EDH 23:38 → 4E 01-02 03:15
PROVIDERS: ADMIT Hospitalist; ATTEND Hospitalist
DX: E10.649 Type 1 diabetes mellitus with hypoglycemia without coma (principal); G93.41 Metabolic encephalopathy; E86.0 Dehydration; Z79.4 Long term (current) use of insulin
CPT/HCPCS: 80053; 80307; 81001; 82948; 82962; 84443; 85025; 93005; 99285; C9113; G0378; G0480; J1644; J1815; J7030; J7060

== ENCOUNTER 2024-06-14 06:58 | Inpatient (IN) | payer MEDICARE, OTHER ==
[~2024-06-14] VITALS: Ht 172.7 cm; Wt 70.6 kg
[~2024-06-14 06:58] MED LIST changes: -ACET-2247 PO; +AMOX-457 PO; -DOCU-385 PO; -HEPA500018 SQ; -HYDR-4062 PO
[2024-06-14] MEDS ORDERED: 0.9% SODIUM CHLORIDE 10 ML SYRINGE IVP PRN (07:15)
[2024-06-14 07:35] LABS: ABG HCO3 5.6 mmol/L (21.0-28.0); ABG METHEMOGLOBIN 1.2 % (0.0-1.5); ABG OXYGEN CONTENT 15.8 mL/dL (15.0-23.0); ABG OXYGEN SATURATION 98.2 % (94.0-98.0); ABG TOTAL HEMOGLOBIN 11.4 G/dL (13.5-17.5); PO2, ARTERIAL BG 133.1 mmHg (83.0-108.0); SOURCE, BLOOD GAS ARTERIAL; TEMPERATURE, FAHRENHEIT, BG 94.4 FAHREN (96.0-98.6)
[2024-06-14 07:38] LABS: ABG A-A DIFF O2 5.4 mmHg (10-20.0); ABG PCO2 10 mmHg (32.0-48.0); ABG PH 7.007 (7.350-7.450); ALLEN TEST, BLOOD GAS Positive; O2 DEVICE,BLOOD GAS ROOM AIR (ROOM AIR); SITE, BLOOD GAS LFT RADIAL
[2024-06-14 07:39] LABS: BASOPHILS % (AUTO) 0.6 % (0.0-2.0); EOSINOPHILS % (AUTO) 0.1 % (1.0-6.0); HEMOGLOBIN 10.8 g/dL (13.5-17.5); LYMPHOCYTES # (AUTO) 0.9 K/uL (1.0-4.8); LYMPHOCYTES % (AUTO) 5.2 % (22.0-44.0); MEAN CORPUSCULAR HEMOGLOBIN 29.3 pg (26.0-34.0); MEAN CORPUSCULAR HGB CONC 27.6 G/dL (31.0-37.0); MEAN CORPUSCULAR VOLUME 106 fL (80-100); MONOCYTES # (AUTO) 0.5 K/uL (0.1-1.0); MONOCYTES % (AUTO) 2.5 % (2.0-9.0); NEUTROPHILS # (AUTO) 16.5 K/uL (1.8-7.7); PLATELET COUNT (AUTO) 335 K/uL (150-450); RED BLOOD CELL COUNT(AUTO) 3.68 MIL/uL (4.50-5.90); RED CELL DISTRIBUTION WIDTH 15.8 % (11.5-14.5)
[2024-06-14 07:39] LABS: APPEARANCE,URINE CLEAR (CLEAR); BILIRUBIN,URINE NEGATIVE (NEGATIVE); COLOR,URINE COLORLESS (YELLOW); GLUCOSE, URINE (UA) >=1000 mg/dL (NEGATIVE); KETONES,URINE 80-100 mg/dL (NEGATIVE); LEUKOCYTE ESTERASE ,URINE NEGATIVE (NEGATIVE); NITRATE,URINE NEGATIVE (NEGATIVE); OCCULT BLOOD,URINE SMALL (NEGATIVE); PROTEIN,URINE TRACE mg/dL (NEGATIVE); SPECIFIC GRAVITIY, URINE 1.022 (1.003-1.030); UROBILINOGEN,URINE <=1.0 mg/dL (<=1.0)
[2024-06-14] MEDS: CefTRIAXone 1 GM/DEXTROSE 50 ML IV ONE (07:43)
[2024-06-14] MEDS: PANTOPRAZOLE SODIUM 40 MG/VIAL IVP ONE (07:43)
[2024-06-14] MEDS: SODIUM CHLORIDE 0.9% 1,350 ML IV ONE (07:44)
[2024-06-14 07:45] LABS: PROTHROMBIN TIME 10.7 SEC (9.4-11.6)
[2024-06-14] MEDS: SODIUM BICARBONATE [ADULT] 8.4% 50 MEQ/50 ML SYRINGE IVP ONE (07:45)
[2024-06-14 07:47] LABS: CALCIUM, TOTAL 9.2 mg/dL (8.8-10.5); CHLORIDE 87 mmol/L (98-107); CREATININE 2.53 mg/dL (0.60-1.30); GLOMERULAR FILTR. RATE CALC 26 mL/min (>60); POTASSIUM 5.9 mmol/L (3.5-5.1); SODIUM SERUM 128 mmol/L (136-145); UREA NITROGEN, BLOOD 39 mg/dL (7-18)
[2024-06-14 07:53] LABS: BACTERIA,URINE None Seen /HPF (None Seen); RBC,URINE None Seen /HPF (0-2); SQUAMOUS EPITHELIAL CELL,UR Few /LPF (None Seen); WBC,URINE None Seen /HPF (0-5)
[2024-06-14 07:55] LABS: ALANINE AMINOTRANSFERASE 20 U/L (12-78); ALBUMIN 3.2 g/dL (3.4-5.0); ALKALINE PHOSPHATASE 107 U/L (46-116); ASPARTATE AMINOTRANSFERASE 18 U/L (15-37); BILIRUBIN,TOTAL 0.5 mg/dL (0.1-1.0); CREATINE KINASE, TOTAL ONLY 61 U/L (39-308); TOTAL PROTEIN, SERUM 7.2 g/dL (6.4-8.2)
[2024-06-14 07:58] LABS: B-TYPE NATRIURETIC PEPTIDE 252 pg/mL (0-100); NEUTROPHILS % (AUTO) 91.6 % (40.0-70.0)
[2024-06-14 08:00] LABS: RBC MORPHOLOGY COMMENT ABNORMAL RBC MORPH
[2024-06-14] MEDS ORDERED: DEXTROSE 50%-WATER 25 GM/50 ML SYRINGE IVP PRN ×2 (08:00→12:15)
[2024-06-14] MEDS ORDERED: SODIUM CHLORIDE 0.45% 1,000 ML IV PRN ×2 (08:00→12:15)
[2024-06-14] MEDS ORDERED: DEXTROSE 5%-0.45% SODIUM CHL 1,000 ML IV PRN (08:00)
[2024-06-14] MEDS ORDERED: POTASSIUM CHLORIDE 40 MEQ in SODIUM CHLORIDE 0.45% 1,000 ML IV PRN ×2 (08:00→12:15)
[2024-06-14 08:06] LABS: TROPONIN I-HIGH SENSITIVITY 284 ng/L (<76)
[2024-06-14 08:07] LABS: LACTIC ACID 10.3 mmol/L (0.4-2.0)
[2024-06-14] MEDS: INSULIN REGULAR, HUMAN 100 UNITS/ML IVP ONE (08:07)
[2024-06-14 08:10] LABS: ANION GAP 36 mmol/L (8-16); CARBON DIOXIDE < 5 mmol/L (22-29); GLUCOSE,RANDOM 1193 mg/dL (70-110)
[2024-06-14] MEDS: NOREPINEPHRINE 8 MG/0.9 % NACL 250 ML IV PRN (08:17)
[2024-06-14] MEDS ORDERED: SODIUM CHLORIDE 0.9% 100 ML ONE (09:18)
[2024-06-14] MEDS ORDERED: INSULIN REGULAR, HUMAN 100 UNITS/ML ONE (09:18)
[2024-06-14] MEDS: SODIUM CHLORIDE 0.9% 1,000 ML IV SCH ×2 (09:31→22:17)
[2024-06-14] MEDS: INSULIN REGULAR, HUMAN 100 UNITS in SODIUM CHLORIDE 0.9% 99 ML IV PRN ×2 (09:31→18:44)
[2024-06-14 09:59] LABS: CALCIUM, TOTAL 8.8 mg/dL (8.8-10.5); CREATININE 2.52 mg/dL (0.60-1.30); POTASSIUM 5.3 mmol/L (3.5-5.1)
[2024-06-14] MEDS: POTASSIUM CHL 20 MEQ/0.45% NS 1,000 ML IV PRN ×2 (10:26→13:26)
[2024-06-14 10:52] LABS: CALCIUM, TOTAL 8.7 mg/dL (8.8-10.5); CREATININE 2.53 mg/dL (0.60-1.30); POTASSIUM 5.4 mmol/L (3.5-5.1)
[2024-06-14 11:09] LABS: MAGNESIUM 2.8 mg/dL (1.80-2.40)
[2024-06-14 11:21] LABS: PHOSPHORUS 9.6 mg/dL (2.5-4.9)
[2024-06-14] MEDS: INSULIN REGULAR, HUMAN 100 UNITS/ML IVP PRN ×2 (11:22→13:23)
[2024-06-14 11:53] LABS: CALCIUM, TOTAL 8.5 mg/dL (8.8-10.5); CREATININE 2.58 mg/dL (0.60-1.30); POTASSIUM 5.2 mmol/L (3.5-5.1)
[2024-06-14] MEDS ORDERED: ONDANSETRON HCL 4 MG/2 ML VIAL IVP PRN (12:15)
[2024-06-14] MEDS ORDERED: HYDROCODONE/ACETAMINOPHEN 5-325 MG TABLET PO PRN (12:15)
[2024-06-14] MEDS ORDERED: BISACODYL 10 MG RECTAL RECTAL SUPPOSITORY PR PRN (12:15)
[2024-06-14] MEDS ORDERED: IPRATROPIUM BROMIDE 0.5 MG/2.5 ML NEB SOLUTION NEB PRN (12:15)
[2024-06-14] MEDS ORDERED: MORPHINE SULFATE 2 MG/ML SYRINGE IVP PRN (12:15)
[2024-06-14] MEDS ORDERED: ALBUTEROL SULFATE 2.5 MG/0.5 ML NEB SOLUTION NEB PRN (12:15)
[2024-06-14] MEDS ORDERED: SODIUM CHLORIDE 0.9% 1,000 ML IV SCH (12:15)
[2024-06-14] MEDS ORDERED: ACETAMINOPHEN 325 MG TABLET PO PRN (12:15)
[2024-06-14] MEDS ORDERED: MAGNESIUM HYDROXIDE SUSPENSION 30 ML UDCUP PO PRN (12:15)
[2024-06-14] MEDS ORDERED: ZOLPIDEM TARTRATE 5 MG TABLET PO PRN (12:15)
[2024-06-14 13:02] LABS: CALCIUM, TOTAL 8.5 mg/dL (8.8-10.5); CREATININE 2.47 mg/dL (0.60-1.30); POTASSIUM 4.8 mmol/L (3.5-5.1)
[2024-06-14 13:42] LABS: BASOPHILS % (AUTO) 0.2 % (0.0-2.0); EOSINOPHILS % (AUTO) 0 % (1.0-6.0); HEMATOCRIT 30.1 % (41-53); HEMOGLOBIN 9.9 g/dL (13.5-17.5); LYMPHOCYTES # (AUTO) 0.5 K/uL (1.0-4.8); LYMPHOCYTES % (AUTO) 3.7 % (22.0-44.0); MEAN CORPUSCULAR HEMOGLOBIN 29.7 pg (26.0-34.0); MEAN CORPUSCULAR HGB CONC 32.8 G/dL (31.0-37.0); MEAN CORPUSCULAR VOLUME 90 fL (80-100); MONOCYTES # (AUTO) 0.5 K/uL (0.1-1.0); MONOCYTES % (AUTO) 3.7 % (2.0-9.0); NEUTROPHILS # (AUTO) 13.4 K/uL (1.8-7.7); PLATELET COUNT (AUTO) 289 K/uL (150-450); RED BLOOD CELL COUNT(AUTO) 3.33 MIL/uL (4.50-5.90); RED CELL DISTRIBUTION WIDTH 15.4 % (11.5-14.5); WHITE BLOOD COUNT (AUTO) 14.5 K/uL (4.5-11.0)
[2024-06-14 13:43] LABS: NEUTROPHILS % (AUTO) 92.4 % (40.0-70.0)
[2024-06-14 13:51] LABS: CALCIUM, TOTAL 8.5 mg/dL (8.8-10.5); CREATININE 2.36 mg/dL (0.60-1.30); POTASSIUM 4.6 mmol/L (3.5-5.1)
[2024-06-14] MEDS: DOXYCYCLINE HYCLATE 100 MG in DEXTROSE 5%-WATER 100 ML IV SCH (13:52)
[2024-06-14 16:00] VITALS: BP 85/37; PULSE 102; RESP 12; TEMP 99.5; O2SAT 96
[2024-06-14] MEDS: HEPARIN SODIUM,PORCINE 5,000 UNITS/ML VIAL SQ SCH (16:43)
[2024-06-14 17:40] LABS: GLUCOMETER DEV NAME(LOC) ICUN.5; GLUCOSE,POINT OF CARE 332 MG/DL (70-110)
[2024-06-14 17:53] LABS: CALCIUM, TOTAL 8.9 mg/dL (8.8-10.5); CREATININE 2.08 mg/dL (0.60-1.30); POTASSIUM 4.2 mmol/L (3.5-5.1)
[2024-06-14] MEDS: DEXTROSE 5%-0.45% SODIUM CHL 1,000 ML IV PRN (18:45)
[2024-06-14 19:46] LABS: GLUCOMETER DEV NAME(LOC) ICU.S6; GLUCOSE,POINT OF CARE 302 MG/DL (70-110)
[2024-06-14 19:46] LABS: GLUCOMETER DEV NAME(LOC) ICU.S6; GLUCOSE,POINT OF CARE 463 MG/DL (70-110)
[2024-06-14 19:46] LABS: GLUCOMETER DEV NAME(LOC) ICU.S6; GLUCOSE,POINT OF CARE 394 MG/DL (70-110)
[2024-06-14 19:46] LABS: GLUCOMETER DEV NAME(LOC) ICU.S6; GLUCOSE,POINT OF CARE 205 MG/DL (70-110)
[2024-06-14 20:00] VITALS: BP 105/53; PULSE 95; RESP 12; TEMP 98.3; O2SAT 97
[2024-06-14] MEDS: DOCUSATE SODIUM 100 MG CAPSULE PO SCH (21:00)
[2024-06-14 21:05] LABS: GLUCOMETER DEV NAME(LOC) ER.7; GLUCOSE,POINT OF CARE > 600 MG/DL (70-110)
[2024-06-14 21:28] LABS: CALCIUM, TOTAL 8.7 mg/dL (8.8-10.5); CREATININE 1.66 mg/dL (0.60-1.30); POTASSIUM 3.9 mmol/L (3.5-5.1)
[2024-06-14 21:30] LABS: GLUCOMETER DEV NAME(LOC) ICUN.5; GLUCOSE,POINT OF CARE 154 MG/DL (70-110)
[2024-06-14 21:40] LABS: GLUCOMETER DEV NAME(LOC) ICU.S6; GLUCOSE,POINT OF CARE 223 MG/DL (70-110)
[2024-06-14 22:30] LABS: GLUCOMETER DEV NAME(LOC) ICUN.5; GLUCOSE,POINT OF CARE 93 MG/DL (70-110)
[2024-06-14] MEDS: DEXTROSE 50%-WATER 25 GM/50 ML SYRINGE IVP PRN (22:32)
[2024-06-14 22:50] LABS: GLUCOMETER DEV NAME(LOC) ICUN.5; GLUCOSE,POINT OF CARE 52 MG/DL (70-110)
[2024-06-14 23:25] LABS: GLUCOMETER DEV NAME(LOC) ICU.S6; GLUCOSE,POINT OF CARE 170 MG/DL (70-110)
[2024-06-15] VITALS: BP 103/54; PULSE 93; RESP 15; TEMP 97.4; O2SAT 93
[2024-06-15 00:16] LABS: GLUCOMETER DEV NAME(LOC) ICU.S6; GLUCOSE,POINT OF CARE 151 MG/DL (70-110)
[2024-06-15 00:41] LABS: GLUCOMETER DEV NAME(LOC) ICU.S6; GLUCOSE,POINT OF CARE 154 MG/DL (70-110)
[2024-06-15 02:38] LABS: CALCIUM, TOTAL 8.6 mg/dL (8.8-10.5); CREATININE 1.47 mg/dL (0.60-1.30); POTASSIUM 4.5 mmol/L (3.5-5.1)
[2024-06-15] MEDS ORDERED: SODIUM CHLORIDE 0.9% 250 ML IV ONE (02:46)
[2024-06-15 04:00] VITALS: BP 102/54; PULSE 97; RESP 14; TEMP 98.2; O2SAT 98
[2024-06-15] MEDS: INSULIN LISPRO 100 UNITS/ML SQ PRN ×2 (04:31→20:32)
[2024-06-15 05:16] LABS: GLUCOMETER DEV NAME(LOC) ICU.S6; GLUCOSE,POINT OF CARE 344 MG/DL (70-110)
[2024-06-15] MEDS: LEVOTHYROXINE SODIUM 75 MCG TABLET PO SCH (06:12)
[2024-06-15] MEDS: LEVOTHYROXINE SODIUM 100 MCG TABLET PO SCH (06:12)
[2024-06-15 07:10] LABS: CALCIUM, TOTAL 8.3 mg/dL (8.8-10.5); CREATININE 1.62 mg/dL (0.60-1.30); POTASSIUM 4.1 mmol/L (3.5-5.1)
[2024-06-15 08:00] VITALS: BP 101/54; PULSE 96; RESP 19; TEMP 96.6; O2SAT 100
[2024-06-15] MEDS ORDERED: POTASSIUM CHL 20 MEQ/0.45% NS 1,000 ML IV PRN (08:15)
[2024-06-15] MEDS ORDERED: SODIUM CHLORIDE 0.45% 1,000 ML IV PRN (08:15)
[2024-06-15] MEDS ORDERED: INSULIN REGULAR, HUMAN 100 UNITS in SODIUM CHLORIDE 0.9% 99 ML IV PRN (08:15)
[2024-06-15] MEDS ORDERED: POTASSIUM CHLORIDE 40 MEQ in SODIUM CHLORIDE 0.45% 1,000 ML IV PRN (08:15)
[2024-06-15] MEDS ORDERED: DEXTROSE 50%-WATER 25 GM/50 ML SYRINGE IVP PRN ×2 (08:15→17:00)
[2024-06-15 08:16] LABS: ALBUMIN 2.5 g/dL (3.4-5.0); BILIRUBIN,TOTAL 0.4 mg/dL (0.1-1.0); MAGNESIUM 1.9 mg/dL (1.80-2.40); PHOSPHORUS 1.7 mg/dL (2.5-4.9); TOTAL PROTEIN, SERUM 5.9 g/dL (6.4-8.2)
[2024-06-15] MEDS: PANTOPRAZOLE SODIUM 40 MG/VIAL IVP SCH (08:25)
[2024-06-15] MEDS: CefTRIAXone 1 GM/DEXTROSE 50 ML IV SCH (08:26)
[2024-06-15] MEDS: SODIUM CHLORIDE 0.9% 1,000 ML IV SCH ×2 (08:27→13:45)
[2024-06-15] MEDS: INSULIN REGULAR, HUMAN 100 UNITS/ML IVP PRN (09:11)
[2024-06-15 09:24] LABS: BASOPHILS % (AUTO) 0.2 % (0.0-2.0); EOSINOPHILS % (AUTO) 0.1 % (1.0-6.0); HEMATOCRIT 33.1 % (41-53); LYMPHOCYTES # (AUTO) 1.2 K/uL (1.0-4.8); LYMPHOCYTES % (AUTO) 8.1 % (22.0-44.0); MEAN CORPUSCULAR HEMOGLOBIN 29.5 pg (26.0-34.0); MEAN CORPUSCULAR HGB CONC 33.2 G/dL (31.0-37.0); MEAN CORPUSCULAR VOLUME 89 fL (80-100); MONOCYTES # (AUTO) 0.4 K/uL (0.1-1.0); MONOCYTES % (AUTO) 2.6 % (2.0-9.0); NEUTROPHILS # (AUTO) 12.9 K/uL (1.8-7.7); PLATELET COUNT (AUTO) 282 K/uL (150-450); RED BLOOD CELL COUNT(AUTO) 3.72 MIL/uL (4.50-5.90); RED CELL DISTRIBUTION WIDTH 15.8 % (11.5-14.5); WHITE BLOOD COUNT (AUTO) 14.4 K/uL (4.5-11.0)
[2024-06-15 11:20] LABS: GLUCOMETER DEV NAME(LOC) ICU.S6; GLUCOSE,POINT OF CARE 269 MG/DL (70-110)
[2024-06-15 11:20] LABS: GLUCOMETER DEV NAME(LOC) ICU.S6; GLUCOSE,POINT OF CARE 204 MG/DL (70-110)
[2024-06-15 11:20] LABS: GLUCOMETER DEV NAME(LOC) ICU.S6; GLUCOSE,POINT OF CARE 239 MG/DL (70-110)
[2024-06-15 11:26] LABS: GLUCOMETER DEV NAME(LOC) ICUN.5; GLUCOSE,POINT OF CARE 163 MG/DL (70-110)
[2024-06-15 12:00] VITALS: BP 114/59; PULSE 88; RESP 21; TEMP 98.2; O2SAT 100
[2024-06-15] MEDS: DEXTROSE 5%-0.45% SODIUM CHL 1,000 ML IV PRN (12:34)
[2024-06-15 12:45] LABS: CALCIUM, TOTAL 8.5 mg/dL (8.8-10.5); CREATININE 1.45 mg/dL (0.60-1.30); POTASSIUM 4.3 mmol/L (3.5-5.1)
[2024-06-15] MEDS: INSULIN REGULAR, HUMAN 100 UNITS/ML SQ ONE (13:44)
[2024-06-15] MEDS: INSULIN GLARGINE,HUM.REC.ANLOG 100 UNITS/ML SQ ONE ×2 (13:45→20:31)
[2024-06-15 16:00] VITALS: BP 107/49; PULSE 93; RESP 12; TEMP 98.4; O2SAT 100
[2024-06-15 16:33] LABS: CALCIUM, TOTAL 8.7 mg/dL (8.8-10.5); CREATININE 1.57 mg/dL (0.60-1.30); POTASSIUM 3.9 mmol/L (3.5-5.1)
[2024-06-15] MEDS ORDERED: INSULIN LISPRO 100 UNITS/ML SQ PRN (17:00)
[2024-06-15] MEDS ORDERED: GLUCAGON,HUMAN RECOMBINANT 1 MG VIAL IM PRN (17:00)
[2024-06-15 20:00] VITALS: BP 117/64; PULSE 81; RESP 21; TEMP 98.1; O2SAT 98
[2024-06-15 20:53] LABS: CALCIUM, TOTAL 8.4 mg/dL (8.8-10.5); CREATININE 1.53 mg/dL (0.60-1.30); POTASSIUM 3.8 mmol/L (3.5-5.1)
[2024-06-15 21:21] LABS: GLUCOMETER DEV NAME(LOC) ICU.S6; GLUCOSE,POINT OF CARE 103 MG/DL (70-110)
[2024-06-15 21:21] LABS: GLUCOMETER DEV NAME(LOC) ICU.S6; GLUCOSE,POINT OF CARE 220 MG/DL (70-110)
[2024-06-15 21:21] LABS: GLUCOMETER DEV NAME(LOC) ICU.S6; GLUCOSE,POINT OF CARE 133 MG/DL (70-110)
[2024-06-15 21:21] LABS: GLUCOMETER DEV NAME(LOC) ICU.S6; GLUCOSE,POINT OF CARE 158 MG/DL (70-110)
[2024-06-15 21:21] LABS: GLUCOMETER DEV NAME(LOC) ICU.S6; GLUCOSE,POINT OF CARE 133 MG/DL (70-110)
[2024-06-16] VITALS (7 sets, daily range): BP systolic 94–119; BP diastolic 46–69; PULSE 72–80; RESP 10–18; TEMP 97.2–98.2; O2SAT 97–100
[2024-06-16 06:44] LABS: BASOPHILS % (AUTO) 0.9 % (0.0-2.0); EOSINOPHILS % (AUTO) 0.8 % (1.0-6.0); HEMATOCRIT 27.9 % (41-53); HEMOGLOBIN 9.3 g/dL (13.5-17.5); LYMPHOCYTES # (AUTO) 1.6 K/uL (1.0-4.8); LYMPHOCYTES % (AUTO) 25.6 % (22.0-44.0); MEAN CORPUSCULAR HEMOGLOBIN 29.6 pg (26.0-34.0); MEAN CORPUSCULAR HGB CONC 33.4 G/dL (31.0-37.0); MEAN CORPUSCULAR VOLUME 89 fL (80-100); MONOCYTES # (AUTO) 0.3 K/uL (0.1-1.0); NEUTROPHILS # (AUTO) 4.3 K/uL (1.8-7.7); NEUTROPHILS % (AUTO) 67.7 % (40.0-70.0); PLATELET COUNT (AUTO) 223 K/uL (150-450); RED BLOOD CELL COUNT(AUTO) 3.15 MIL/uL (4.50-5.90); RED CELL DISTRIBUTION WIDTH 15.8 % (11.5-14.5); WHITE BLOOD COUNT (AUTO) 6.4 K/uL (4.5-11.0)
[2024-06-16 06:45] LABS: ALANINE AMINOTRANSFERASE 16 U/L (12-78); ALBUMIN 2.3 g/dL (3.4-5.0); ALKALINE PHOSPHATASE 71 U/L (46-116); ASPARTATE AMINOTRANSFERASE 23 U/L (15-37); BILIRUBIN,TOTAL 0.3 mg/dL (0.1-1.0); CARBON DIOXIDE 26 mmol/L (22-29); CREATININE 1.07 mg/dL (0.60-1.30); GLOMERULAR FILTR. RATE CALC > 60 mL/min (>60); GLUCOSE,RANDOM 153 mg/dL (70-110); PHOSPHORUS 2.1 mg/dL (2.5-4.9); POTASSIUM 3.3 mmol/L (3.5-5.1); SODIUM SERUM 138 mmol/L (136-145); TOTAL PROTEIN, SERUM 5.4 g/dL (6.4-8.2); UREA NITROGEN, BLOOD 18 mg/dL (7-18)
[2024-06-16 06:56] LABS: ANION GAP 8 mmol/L (8-16); CHLORIDE 104 mmol/L (98-107)
[2024-06-16] MEDS: INSULIN GLARGINE,HUM.REC.ANLOG 100 UNITS/ML SQ SCH (11:01)
[2024-06-16 12:05] LABS: GLUCOMETER DEV NAME(LOC) ICU.S6; GLUCOSE,POINT OF CARE 131 MG/DL (70-110)
[2024-06-16 12:05] LABS: GLUCOMETER DEV NAME(LOC) ICU.S6; GLUCOSE,POINT OF CARE 161 MG/DL (70-110)
[2024-06-16 13:31] LABS: GLUCOMETER DEV NAME(LOC) ICU.S6; GLUCOSE,POINT OF CARE 235 MG/DL (70-110)
[2024-06-16] MEDS: POTASSIUM CHLORIDE 20 MEQ ER TABLET PO ONE (14:26)
[2024-06-16 21:20] LABS: GLUCOMETER DEV NAME(LOC) ICUN.5; GLUCOSE,POINT OF CARE 178 MG/DL (70-110)
[2024-06-16 21:50] LABS: GLUCOMETER DEV NAME(LOC) 6S.1D; GLUCOSE,POINT OF CARE 180 MG/DL (70-110)
[2024-06-17 04:00] VITALS: BP 118/66; PULSE 76; RESP 18; TEMP 98; O2SAT 95
[2024-06-17 05:41] LABS: GLUCOMETER DEV NAME(LOC) 6S.2; GLUCOSE,POINT OF CARE 128 MG/DL (70-110)
[2024-06-17 07:30] VITALS: BP 124/68; PULSE 74; RESP 18; TEMP 97.7; O2SAT 97
[2024-06-17 08:29] VITALS: BP 117/66; PULSE 77; RESP 19; TEMP 98.5; O2SAT 98
[2024-06-17 13:40] LABS: GLUCOMETER DEV NAME(LOC) 6S.2; GLUCOSE,POINT OF CARE 183 MG/DL (70-110)
[2024-06-17] MEDS ORDERED: DOXY-354 PO (14:38)
[2024-06-17 21:21] LABS: GLUCOMETER DEV NAME(LOC) 6S.1D; GLUCOSE,POINT OF CARE 203 MG/DL (70-110)
== END 2024-06-17 17:00 | disposition home or self-care (01) | DRG 871 ==
LOC: EMS 07:01 → EDH 12:11 → ICU 14:00 → 6N 06-16 19:55
PROVIDERS: ADMIT Hospitalist; ATTEND Hospitalist
DX: A41.9 Sepsis, unspecified organism (principal); E11.10 Type 2 diabetes mellitus with ketoacidosis without coma; E43 Unspecified severe protein-calorie malnutrition; N17.9 Acute kidney failure, unspecified; D64.9 Anemia, unspecified; I10 Essential (primary) hypertension; E03.9 Hypothyroidism, unspecified; D72.829 Elevated white blood cell count, unspecified; K21.9 Gastro-esophageal reflux disease without esophagitis; R29.6 Repeated falls; E78.5 Hyperlipidemia, unspecified; Z83.3 Family history of diabetes mellitus; Z91.041 Radiographic dye allergy status; Z91.199 Patient's noncompliance with other medical treatment and regimen due to unspecified reason; Z89.122 Acquired absence of left wrist; Z68.23 Body mass index [BMI] 23.0-23.9, adult
CPT/HCPCS: 36600; 70450; 71045; 72125; 80048; 80053; 80076; 81001; 82009; 82550; 82805; 82962; 83605; 83735; 83880; 83930; 84100; 84132; 84145; 84484; 85025; 85610; 86850; 86900; 86901; 87040; 87081; 87481; 93005; 97116; 97162; 97530; 99285; J0696; J1644; J1815; J2470; J3480; J3490; J7030; J7050; J7060; 36415-L1; 36415-TC